=== PATIENT | female | born 1995 | race Caucasian/White ===

== ENCOUNTER 2018-01-30 21:42 | Emergency (ER) | payer OTHER ==
[~2018-01-30] VITALS: Ht 157.5 cm; Wt 117.9 kg
[~2018-01-30 21:42] MED LIST: METF500T PO
[2018-01-30 21:47] VITALS: BP 150/90
--- NOTE | 2018-01-30 21:49 | NUR ---
TO LOBBY A/W BED. INGRID ONEAL NOTED
--- NOTE | 2018-01-30 23:54 | NUR ---
PT AMBULATED TO BED 9 AT THIS TIME
--- NOTE | 2018-01-31 | NUR ---
22 Y/O F W/C/O ABD PAIN, N/V, DIARRHEA SINCE SUNDAY; SKIN IS INTACT, PINK/WARM/DRY; AAOX4, PERRL, WITH EVEN AND STEADY GAIT; LUNGS CLEAR BL, BREATHING UNLABORED; HR EVEN AND REGULAR, BL PERIPHERAL PULSES PRESENT; BS ACTIVE X4, NO TENDERNESS TO PALPATION, NO HEPATOSPLENOMEGALLY PALPATED, RESONANT TO PERCUSSION; PT DENIES ANY FEVER, CP, SOB, OR COUGH AT THIS TIME; PT STATES 8/10 PAIN AT THIS TIME; VSS; PATIENT POSITIONED FOR COMFORT; HOB ELEVATED; BEDRAILS UP X2; BED DOWN.
[2018-01-31 00:16] LABS: BASOPHILS # (AUTO) 0.1 K/uL (0.00-0.22); BASOPHILS % (AUTO) 0.7 % (0.0-2.0); EOSINOPHILS # (AUTO) 0.1 K/uL (0-0.4); EOSINOPHILS % (AUTO) 1.1 % (0.0-4.0); HEMATOCRIT 37.5 % (36-48); HEMOGLOBIN 12.5 g/dL (12.0-16.0); LYMPHOCYTES # (AUTO) 3.6 K/uL (2.5-16.5); LYMPHOCYTES % (AUTO) 40.4 % (20.5-51.1); MEAN CORPUSCULAR HEMOGLOBIN 28 pg (27-31); MEAN CORPUSCULAR HGB CONC 33 g/dL (33-37); MEAN CORPUSCULAR VOLUME 83.3 fL (80-94); MONOCYTES # (AUTO) 0.9 K/uL (0.8-1.0); MONOCYTES % (AUTO) 9.6 % (1.7-9.3); NEUTROPHILS # (AUTO) 4.3 K/uL (1.8-7.7); NEUTROPHILS % (AUTO) 48.2 % (42.2-75.2); PLATELET COUNT (AUTO) 276 K/uL (140-450); RED CELL DISTRIBUTION WIDTH 14.1 % (11.6-13.7)
[2018-01-31] MEDS ORDERED: DICYCLOMINE HCL LIQUID 20 MG, ALUMINUM HYD/MAG/SIMETHICONE 30 ML, LIDOCAINE VISCOUS 2% ... PO ONE ×3 (00:20)
[2018-01-31 00:30] LABS: ALBUMIN 3.1 g/dL (3.4-5.0); ANION GAP 10.2 (8-16); CARBON DIOXIDE 28.6 mmol/L (21-32); CREATININE 0.6 mg/dL (0.6-1.3); POTASSIUM 3.8 mmol/L (3.5-5.1); TOTAL BILIRUBIN 0.2 mg/dL (0.0-1.0)
--- NOTE | 2018-01-31 00:40 | NUR ---
Patient appears to be resting comfortably in bed. Vital Signs within normal limits. Respirations even and unlabored.
[2018-01-31 01:10] VITALS: BP 137/85
--- NOTE | 2018-01-31 01:11 | NUR ---
Patient discharged with v/s stable. Written and verbal after care instructions given and explained. Patient alert, oriented and verbalized understanding of instructions. Ambulatory with steady gait. All questions addressed prior to discharge. ID band removed. Patient advised to follow up with PMD. Rx of BENTYL given. Patient educated on indication of medication including possible reaction and side effects. Opportunity to ask questions provided and answered.
== END 2018-01-31 01:10 | disposition home or self-care (01) ==
LOC: MED 21:42
DX: R10.12 Left upper quadrant pain (principal); Z79.84 Long term (current) use of oral hypoglycemic drugs
CPT/HCPCS: 36415; 74018; 80053; 81002; 81025; 83690; 85025; 99285; Q0092

== ENCOUNTER 2018-05-14 20:44 | Emergency (ER) | payer SELFPAY ==
[~2018-05-14] VITALS: Ht 157.5 cm; Wt 117.9 kg
[2018-05-14 20:58] VITALS: BP 156/81
--- NOTE | 2018-05-14 21:10 | NUR ---
PT WILIAN VARGAS FROM TRIAGE TO ED BED 09 FOR EVALUATION OF HEADACHE. PT STATED HEADACHE WITH ABDOMINAL PAIN AND N/V X 2 DAYS. DENIES PMH. AAO X4, GCS 15, ABLE TO SPEAK WITH FULL COMPLETE SENTENCES. AMBULATORY WITH STDEAY GAIT. SKIN WARM/PIN/DRY, +PMSC. ABDOMEN SOFT, NON DISTENDED, ACTIVE BOWEL SOOUND X4. STATED RLQ PAIN 5/10. VSS, DR. DEXTER MADE AWARE OF PT STATUS. WILL CONTINUE TO MONITOR
[2018-05-14 21:19] LABS: APPEARANCE,URINE CLEAR (CLEAR); BILIRUBIN,URINE NEGATIVE (NEGATIVE); BLOOD, URINE NEGATIVE (NEGATIVE); COLOR,URINE YELLOW (YELLOW); LEUKOCYTE ESTERASE ,URINE NEGATIVE (NEGATIVE); NITRITE, URINE NEGATIVE (NEGATIVE); PH,URINE 6.5 (5.0-9.0); UGLUCOSE NEGATIVE (NEGATIVE)
[2018-05-14] MEDS ORDERED: KETOROLAC 30 MG/ML VIAL IM ONE (21:35)
[2018-05-14 21:53] LABS: BASOPHILS # (AUTO) 0.1 K/uL (0.00-0.22); BASOPHILS % (AUTO) 0.6 % (0.0-2.0); EOSINOPHILS # (AUTO) 0.1 K/uL (0-0.4); EOSINOPHILS % (AUTO) 0.9 % (0.0-4.0); HEMATOCRIT 39.7 % (36-48); LYMPHOCYTES # (AUTO) 3.9 K/uL (2.5-16.5); LYMPHOCYTES % (AUTO) 41.2 % (20.5-51.1); MEAN CORPUSCULAR HEMOGLOBIN 27 pg (27-31); MEAN CORPUSCULAR HGB CONC 33 g/dL (33-37); MEAN CORPUSCULAR VOLUME 83.6 fL (80-94); MONOCYTES # (AUTO) 0.6 K/uL (0.8-1.0); MONOCYTES % (AUTO) 6.6 % (1.7-9.3); NEUTROPHILS # (AUTO) 4.8 K/uL (1.8-7.7); NEUTROPHILS % (AUTO) 50.7 % (42.2-75.2); PLATELET COUNT (AUTO) 248 K/uL (140-450); RED BLOOD CELL COUNT(AUTO) 4.75 MIL/uL (4.20-5.40); RED CELL DISTRIBUTION WIDTH 13.6 % (11.6-13.7); WHITE BLOOD COUNT (AUTO) 9.5 K/uL (4.5-11.0)
[2018-05-14 22:04] LABS: CARBON DIOXIDE 26.8 mmol/L (21-32); CREATININE 0.6 mg/dL (0.6-1.3); POTASSIUM 3.8 mmol/L (3.5-5.1)
--- NOTE | 2018-05-14 22:56 | NUR ---
PT GCS 15, RESPIATIONS EVEN AND UNLABORED. VSS, NO ACUTE DISTRESS AT THIS TIME. WILL CONTINUE TO MONITOR
[2018-05-14 23:00] VITALS: BP 137/81
--- NOTE | 2018-05-14 23:00 | NUR ---
Patient discharged with v/s stable. Written and verbal after care instructions given and explained. Patient alert, oriented and verbalized understanding of instructions. Ambulatory with steady gait. All questions addressed prior to discharge. ID band removed. Patient advised to follow up with PMD. Rx of FIORICET 50-325-40 MG given. Patient educated on indication of medication including possible reaction and side effects. Opportunity to ask questions provided and answered.
== END 2018-05-14 23:00 | disposition home or self-care (01) ==
LOC: MED 20:44
DX: R10.2 Pelvic and perineal pain (principal); R51 Headache; R42 Dizziness and giddiness; Z79.84 Long term (current) use of oral hypoglycemic drugs
CPT/HCPCS: 36415; 76830; 80048; 81003; 81025; 84703; 85025; 96372; 99284; J1885; Q0092

== ENCOUNTER 2018-09-09 20:29 | Emergency (ER) | payer OTHER ==
[~2018-09-09] VITALS: Ht 157.5 cm; Wt 122.5 kg
[2018-09-09 20:33] VITALS: BP 124/90
--- NOTE | 2018-09-09 20:36 | NUR ---
TO LOBBY A/W BED AMBULATORY
--- NOTE | 2018-09-09 20:55 | NUR ---
PT TAKEN TO BED 3
--- NOTE | 2018-09-09 20:56 | NUR ---
23 y/o f presented to ED with c/o chest pain since 299. Per pt, " its just an uncomfortbale feeling in my chest and sometimes its difficult to breathe". 5/10 sharp and intermintent. bilateral lung head clear. ERMD aware. Will continue to monitor.
[2018-09-09] MEDS ORDERED: IBUPROFEN 800 MG TAB PO ONE (21:05)
[2018-09-09 21:22] LABS: BASOPHILS # (AUTO) 0.1 K/uL (0.00-0.22); BASOPHILS % (AUTO) 0.8 % (0.0-2.0); EOSINOPHILS # (AUTO) 0.1 K/uL (0-0.4); EOSINOPHILS % (AUTO) 1.1 % (0.0-4.0); HEMATOCRIT 37.6 % (36-48); HEMOGLOBIN 12.5 g/dL (12.0-16.0); LYMPHOCYTES # (AUTO) 3.8 K/uL (2.5-16.5); LYMPHOCYTES % (AUTO) 40.9 % (20.5-51.1); MEAN CORPUSCULAR HEMOGLOBIN 28 pg (27-31); MEAN CORPUSCULAR HGB CONC 33 g/dL (33-37); MEAN CORPUSCULAR VOLUME 83.5 fL (80-94); MONOCYTES # (AUTO) 0.7 K/uL (0.8-1.0); MONOCYTES % (AUTO) 7.2 % (1.7-9.3); NEUTROPHILS # (AUTO) 4.6 K/uL (1.8-7.7); PLATELET COUNT (AUTO) 275 K/uL (140-450); RED BLOOD CELL COUNT(AUTO) 4.51 MIL/uL (4.20-5.40); RED CELL DISTRIBUTION WIDTH 13.5 % (11.6-13.7); WHITE BLOOD COUNT (AUTO) 9.2 K/uL (4.8-10.8)
[2018-09-09 22:21] LABS: ANION GAP 13.8 (8-16); CARBON DIOXIDE 25.1 mmol/L (21-32); CREATININE 0.7 mg/dL (0.6-1.3); POTASSIUM 3.9 mmol/L (3.5-5.1)
[2018-09-09 22:36] LABS: ALBUMIN 3.2 g/dL (3.4-5.0); THYROID STIMULATING HORMONE 1.9 uIU/mL (0.34-3.74); TOTAL BILIRUBIN 0.1 mg/dL (0.0-1.0)
[2018-09-09 22:37] LABS: FREE T4 (FREE THYROXINE) 0.91 ng/dL (0.76-1.46)
[2018-09-09 22:41] VITALS: BP 125/73
== END 2018-09-09 22:41 | disposition home or self-care (01) ==
LOC: MED 20:29
DX: R07.9 Chest pain, unspecified (principal); R06.02 Shortness of breath; Z79.84 Long term (current) use of oral hypoglycemic drugs
CPT/HCPCS: 36415; 71045; 80053; 84439; 84443; 85025; 85379; 93005; 99284; Q0092

== ENCOUNTER 2019-01-21 20:32 | Emergency (ER) | payer OTHER ==
[~2019-01-21] VITALS: Ht 157.5 cm; Wt 122.5 kg
[2019-01-21 20:45] VITALS: BP 132/90
--- NOTE | 2019-01-21 20:48 | NUR ---
TO LOBBY A/W BED AMBULATORY
--- NOTE | 2019-01-21 21:40 | NUR ---
PT TAKEN TO BED 12
--- NOTE | 2019-01-21 21:55 | NUR ---
23/F PRESENTED TO ED WITH C/O LOWER ABD PAIN, STARTED AT 1600 TODAY. 10/21 PAIN DESCRIBED INTERMITENT PRESSURE PRECIPITATED BY STANDING/ SITTING/VOIDING. PAINFUL URINATION NOTED. DENIES N/V/D. NO FEVER NOTED. BOWEL SOUNDS ACTIVE IN ALL 4 QUADRANTS. ABD SOFT ROUND NON TENDER. PAST MED HX PCOS. RX METFORMIN, CLOMID. DENIES ALLERGIES. WILL CONTINUE TO MONITOR. NO SIGNS OF DISTRESS NOTED.
--- NOTE | 2019-01-21 23:25 | NUR ---
Dr. Ellison examining patient.
[2019-01-21] MEDS: KETOROLAC 60 MG/2 ML VIAL IM ONE (23:32)
[2019-01-21 23:58] VITALS: BP 132/90
== END 2019-01-21 23:58 | disposition home or self-care (01) ==
LOC: MED 20:32
DX: R10.30 Lower abdominal pain, unspecified (principal); E28.2 Polycystic ovarian syndrome; Z79.84 Long term (current) use of oral hypoglycemic drugs
CPT/HCPCS: 81025; 96372; 99283; J1885

== ENCOUNTER 2020-05-24 09:42 | Emergency (ER) | payer OTHER, SELFPAY ==
[~2020-05-24] VITALS: Ht 157.5 cm; Wt 127.0 kg
[2020-05-24 10:07] VITALS: BP 141/87
--- NOTE | 2020-05-24 10:40 | NUR ---
24 y/o female from home c/o cough, sob, nausea/vomiting, loss of taste and smell x 7 days. RR even and unlabored. Dry cough noted. Denies diarrhea, mild pain provoked by cough. Awake and alert. VSS
--- NOTE | 2020-05-24 11:47 | NUR ---
Covid swab collected and walked to lab
[2020-05-24 12:21] VITALS: BP 141/87
--- NOTE | 2020-05-24 12:21 | NUR ---
Patient discharged with v/s stable. Written and verbal after care instructions given and explained. Patient alert, oriented and verbalized understanding of instructions. Ambulatory with steady gait. All questions addressed prior to discharge. ID band removed. Patient advised to follow up with PMD. Rx of Acetaminophen 500mg, Guaiatussin 100mg-10mg/5ml, albuterol 90mcg given. Patient educated on indication of medication including possible reaction and side effects. Opportunity to ask questions provided and answered.
--- NOTE | 2020-05-25 18:12 | NUR ---
+ covid result from lab-- copy to go to infection prevention
== END 2020-05-24 12:21 | disposition home or self-care (01) ==
LOC: MED 09:42
DX: B34.9 Viral infection, unspecified (principal); Z20.828 Contact with and (suspected) exposure to other viral communicable diseases; Z79.899 Other long term (current) drug therapy; Z98.890 Other specified postprocedural states
CPT/HCPCS: 71045; 99284; U0003

== ENCOUNTER 2020-11-29 23:00 | Emergency (ER) | payer OTHER, SELFPAY ==
[~2020-11-29] VITALS: Ht 160 cm; Wt 133.8 kg
[2020-11-29 23:07] VITALS: BP 159/69
[2020-11-30] MEDS ORDERED: IBUP-2213 PO (00:48)
--- NOTE | 2020-11-30 00:50 | NUR ---
Patient evaluted by Dr. Alonso, no nursing care provided. Patient given discharge instructions by Dr. Alonso. Rx of motrin given. Medication administration and possible side effects explained by Dr. Alonso. All questions asked and answered prior to discharge.
== END 2020-11-30 00:50 | disposition home or self-care (01) ==
LOC: MED 23:00
DX: J02.8 Acute pharyngitis due to other specified organisms (principal); B97.89 Other viral agents as the cause of diseases classified elsewhere; Z79.899 Other long term (current) drug therapy; Z98.890 Other specified postprocedural states
CPT/HCPCS: 99282

== ENCOUNTER 2021-01-18 20:46 | Emergency (ER) | payer OTHER ==
[~2021-01-18 20:46] MED LIST changes: +IBUP-2213 PO
--- NOTE | 2021-01-18 22:00 | NUR ---
CALLED PT, NO RESPONSE. WILL CALL AGAIN.
--- NOTE | 2021-01-18 22:15 | NUR ---
CALLED PT A 2ND TIME, NO RESPONSE. WILL TRY AGAIN.
--- NOTE | 2021-01-18 22:40 | NUR ---
PATIENT LEFT WITHOUT BEING SEEN BY DR. RINCON. NO FURTHER CARE PROVIDED FOR PATIENT.
--- NOTE | 2021-01-18 22:40 | NUR ---
CALLED PT A THIRD TIME WITH NO RESPONSE. PT LWBS.
== END 2021-01-18 22:40 | disposition left against medical advice (07) ==
LOC: MED 20:46
DX: Z53.21 Procedure and treatment not carried out due to patient leaving prior to being seen by health care provider (principal)